=== PATIENT | male | born 1985 | race Two or more races ===

== ENCOUNTER 2021-06-04 12:34 | Emergency (ER) | payer SELFPAY ==
[2021-06-04] MEDS: Dexamethasone 4 MG Tab PO ONE (14:00)
--- NOTE | 2021-06-04 14:43 | EDM.PDOC ---
ED HPI GENERAL MEDICAL PROBLEM - General Chief Complaint: Respiratory Problem Stated Complaint: COVID + Time Seen by Provider: 06/04/21 13:00 Source of Information: Reports: Patient History Limitations: Reports: No Limitations - History of Present Illness INITIAL COMMENTS - FREE TEXT/NARRATIVE: The patient presents with a cough, shortness of breath, fever, chills, generalized weakenss and malaise. This started a few day ago and [facility]. He was COVID positive. He feels worse today. He has no abdominal pain, nausea, vomiting or diarrhea. He has no medical problems such as lung problems, heart disease, hypertension, and hypercholesterolemia. He does smoke. Onset: Gradual Duration: Day(s): Severity: Moderate Improves with: Reports: None Worsens with: Reports: None Associated Symptoms: Reports: Cough, Fever/Chills, Shortness of Breath. Denies: Chest Pain, Headaches, Nausea/Vomiting Generalized Pain Score (Numeric/FACES): 5 - Related Data Allergies Allergy/AdvReac Type Severity Reaction Status Date / Time No Known Allergies Allergy Verified 06/04/21 12:55 Home Meds: Home Meds Albuterol [Proventil HFA] 2 puff INH Q4H PRN #1 inhaler 06/04/21 [Rx] dexAMETHasone [Dexamethasone] 6 mg PO Q6H #12 tab 06/04/21 [Rx] Past Medical History - Past Health History Medical/Surgical History: Denies Medical/Surgical History - Infectious Disease History Infectious Disease History: Reports: Novel Coronavirus Social & Family History - Tobacco Use Tobacco Use Status *Q: Current Every Day Tobacco User Years of Tobacco use: 1 Packs/Tins Daily: 0.2 - Recreational Drug Use Recreational Drug Use: No ED ROS GENERAL - Review of Systems Review Of Systems: See Below Constitutional: Reports: Fever, Chills, Malaise, Weakness, Fatigue HEENT: Reports: No Symptoms Respiratory: Reports: Shortness of Breath, Cough Cardiovascular: Reports: No Symptoms Endocrine: Reports: No Symptoms GI/Abdominal: Reports: No Symptoms : Reports: No Symptoms Musculoskeletal: Reports: No Symptoms ED EXAM, GENERAL - Physical Exam Exam: See Below Exam Limited By: No Limitations General Appearance: Alert, No Apparent Distress Ears: Normal External Exam Nose: Normal Inspection Head: Atraumatic, Normocephalic Neck: Normal Inspection Respiratory/Chest: No Respiratory Distress, Lungs Clear, Normal Breath Sounds Cardiovascular: Regular Rate, Rhythm, No Edema, No Murmur GI/Abdominal: Soft, Non-Tender, No Organomegaly, No Mass Back Exam: Normal Inspection Extremities: Normal Inspection Course - Vital Signs Last Recorded V/S: Last Vital Signs Temp 97 F 06/04/21 12:51 Pulse 102 H 06/04/21 12:51 Resp 16 06/04/21 12:51 BP 129/92 H 06/04/21 12:51 Pulse Ox 96 06/04/21 12:51 - Orders/Labs/Meds Orders: Active Orders 24 hr Category Date Time Status Cardiac Monitoring [RC] . DIRECTED Care 06/04/21 13:36 Active CXR [Chest 1V Frontal] [CR] Stat Exams 06/04/21 13:35 Taken Labs: Laboratory Tests 06/04/21 06/04/21 Range/Units 13:50 13:50 WBC 4.85 (4.23-9.07) K/mm3 RBC 4.58 L (4.63-6.08) M/mm3 Hgb 15.3 (13.7-17.5) gm/dl Hct 44.3 (40.1-51.0) % MCV 96.7 H (79.0-92.2) fl MCH 33.4 H (25.7-32.2) pg MCHC 34.5 (32.2-35.5) g/dl RDW Std Deviation 44.2 H (35.1-43.9) fL Plt Count 182 (163-337) K/mm3 MPV 9.4 (9.4-12.3) fl Neut % (Auto) 60.2 (34.0-67.9) % Lymph % (Auto) 26.4 (21.8-53.1) % Garvin % (Auto) 12.8 H (5.3-12.2) % Eos % (Auto) 0 L (0.8-7.0) Baso % (Auto) 0.4 (0.1-1.2) % Neut # (Auto) 2.92 (1.78-5.38) K/mm3 Lymph # (Auto) 1.28 L (1.32-3.57) K/mm3 Garvin # (Auto) 0.62 (0.30-0.82) K/mm3 Eos # (Auto) 0.00 L (0.04-0.54) K/mm3 Baso # (Auto) 0.02 (0.01-0.08) K/mm3 Manual Slide Review Normal smear Sodium 139 (136-145) mEq/L Potassium 3.7 (3.5-5.1) mEq/L Chloride 101 (98-107) mEq/L Carbon Dioxide 27 (21-32) mEq/L Anion Gap 14.7 (5-15) BUN 13 (7-18) mg/dL Creatinine 1.0 (0.7-1.3) mg/dL Est Cr Clr Drug Dosing TNP Estimated GFR (MDRD) > 60 (>60) mL/min BUN/Creatinine Ratio 13.0 L (14-18) Glucose 95 (70-99) mg/dL Calcium 7.8 L (8.5-10.1) mg/dL Total Bilirubin 0.4 (0.2-1.0) mg/dL AST 29 (15-37) U/L ALT 38 (16-63) U/L Alkaline Phosphatase 62 (46-116) U/L C-Reactive Protein 3.7 H* (<1.0) mg/dL Total Protein 8.0 (6.4-8.2) g/dl Albumin 3.7 (3.4-5.0) g/dl Globulin 4.3 gm/dL Albumin/Globulin Ratio 0.9 L (1-2) Meds: Medications Discontinued Medications Generic Name Dose Route Start Last Admin Trade Name Freq PRN Reason Stop Dose Admin Dexamethasone 6 mg 06/04/21 13:36 06/04/21 14:00 Dexamethasone 4 Mg Tab PO 06/04/21 13:37 6 mg ONETIME ONE Administration - Re-Assessments/Exams Free Text/Narrative Re-Assessment/Exam: 06/04/21 14:41 I ordered a CXR, labs and dexamethasone 6mg PO. His CXR shows an infiltrated in his left lung. 06/04/21 14:42 His CBC and CMP look good. His CRP is elevated at 3.7. I will get him on some dexamethasone at home and an inhaler. Departure - Departure Time of Disposition: 14:45 Disposition: Home, Self-Care 01 Condition: Good Clinical Impression: COVID-19, Pneumonia due to COVID-19 virus - Discharge Information *PRESCRIPTION DRUG MONITORING PROGRAM REVIEWED*: Not Applicable *COPY OF PRESCRIPTION DRUG MONITORING REPORT IN PATIENT TATY: Not Applicable Prescriptions: dexAMETHasone [Dexamethasone] 6 mg PO Q6H #12 tab Albuterol [Proventil HFA] 2 puff INH Q4H PRN #1 inhaler PRN Reason: Shortness Of Breath Referrals: PCP,None [Primary Care Provider] - Awilda Young NP [Nurse Practitioner] - 1 Week Additional Instructions: Take the dexamethasone daily until gone. Use the inhaler 2 puffs every 6 hours as needed for shortness of breath. Take tylenol or motrin as needed for fever. Quarantine for about 10 days or longer if you have symptoms. Sepsis Event Note (ED) - Evaluation Sepsis Screening Result: No Definite Risk - Focused Exam Vital Signs: Vital Signs Temp Pulse Resp BP Pulse Ox 06/04/21 12:51 97 F 102 H 16 129/92 H 96 - My Orders Last 24 Hours: My Active Orders 06/04/21 13:35 CXR [Chest 1V Frontal] [CR] Stat 06/04/21 13:36 Cardiac Monitoring [RC] . DIRECTED - Assessment/Plan Last 24 Hours: My Active Orders 06/04/21 13:35 CXR [Chest 1V Frontal] [CR] Stat 06/04/21 13:36 Cardiac Monitoring [RC] . DIRECTED
--- NOTE | 2021-06-04 15:09 | CR ---
Chest: Portable view of the chest was obtained. Comparison: No prior chest x-ray is available. Patchy areas of of increased density are seen within the left midlung. Minimal densities are scattered within the right lung. Heart size and mediastinum are normal. Bony structures are unremarkable. Impression: 1. Mild areas of Covid pneumonia are felt to be present within both lungs. 2. Portable chest x-ray is otherwise unremarkable. Diagnostic code #3
== END 2021-06-04 15:15 | disposition home or self-care (01) ==
LOC: JD.ED 12:34
DX: U07.1 COVID-19 (principal); J12.82 Pneumonia due to coronavirus disease 2019; Z72.0 Tobacco use; Z86.16 Personal history of COVID-19
CPT/HCPCS: 36415; 71045; 80053; 85025; 86140; 99285; J8540; 99283

== ENCOUNTER 2021-06-07 15:29 | Emergency (ER) | payer SELFPAY ==
--- NOTE | 2021-06-07 16:38 | EDM.PDOC ---
ED HPI GENERAL MEDICAL PROBLEM - General Chief Complaint: Respiratory Problem Stated Complaint: COVID + SOB Time Seen by Provider: 06/07/21 15:47 Source of Information: Reports: Patient, Old Records (previous ER visits), RN Notes Reviewed History Limitations: Reports: No Limitations, Language Barrier (per diem interpreter Ipad utilized) - History of Present Illness INITIAL COMMENTS - FREE TEXT/NARRATIVE: Patient is a 36-year-old male presenting to the ER for his ongoing COVID-19 symptoms. Patient is primarily Malaysian-speaking, and translation is provided through our per diem interpreter iPad. Patient states he has been sick with COVID-19 for roughly 8 days now, he has been taking outpatient dexamethasone, and an inhaler, and states that nothing seems to really be helping. He was feeling a little bit better yesterday, but woke up this morning, and had increasing short of breath, and again felt pretty sick, so he returns to the ER for reevaluation. O2 sats have been in the mid 90s while being here, I did not see anything lower than 92% while being in the ER. Review of his previous visits demonstrate that he did have Covid pneumonia. It does also appear as if he has received IV Regeneron therapy by Dr. Mortensen's orders on 06/02/2021. Patient states he had a temperature as high as 38 C at home. - Related Data Allergies Allergy/AdvReac Type Severity Reaction Status Date / Time No Known Allergies Allergy Verified 06/04/21 12:55 Home Meds: Home Meds Albuterol [Proventil HFA] 2 puff INH Q4H PRN #1 inhaler 06/04/21 [Rx] dexAMETHasone [Dexamethasone] 6 mg PO Q6H #12 tab 06/04/21 [Rx] Azithromycin 250 mg PO ASDIRECTED #6 tablet 06/07/21 [Rx] Past Medical History - Past Health History Medical/Surgical History: Denies Medical/Surgical History - Infectious Disease History Infectious Disease History: Reports: Novel Coronavirus (late 05/2021) Social & Family History - Tobacco Use Tobacco Use Status *Q: Never Tobacco User - Caffeine Use Caffeine Use: Reports: None - Recreational Drug Use Recreational Drug Use: No ED ROS GENERAL - Review of Systems Review Of Systems: Comprehensive ROS is negative, except as noted in HPI. ED EXAM, GENERAL - Physical Exam Exam: See Below Exam Limited By: No Limitations General Appearance: Alert, WD/WN, No Apparent Distress Respiratory/Chest: No Respiratory Distress, Lungs Clear, No Accessory Muscle Use, Chest Non-Tender, Decreased Breath Sounds (diffuse bilaterally) Cardiovascular: Normal Peripheral Pulses, Regular Rate, Rhythm, No Edema Peripheral Pulses: 2+: Radial (L), Radial (R) Extremities: Normal Inspection, Normal Capillary Refill Neurological: Alert, Oriented, Normal Cognition, No Motor/Sensory Deficits Psychiatric: Normal Affect, Normal Mood Skin Exam: Warm, Dry, Intact, Normal Color, No Rash Course - Vital Signs Last Recorded V/S: Last Vital Signs Temp 98.2 F 06/07/21 15:45 Pulse 102 H 06/07/21 15:45 Resp 24 H 06/07/21 15:45 BP 120/81 06/07/21 15:45 Pulse Ox 92 L 06/07/21 15:45 - Orders/Labs/Meds Orders: Active Orders 24 hr Category Date Time Status Chest 1V Frontal [CR] Stat Exams 06/07/21 16:22 Taken Labs: Laboratory Tests 06/07/21 06/07/21 Range/Units 17:20 17:20 WBC 10.25 H (4.23-9.07) K/mm3 RBC 4.15 L (4.63-6.08) M/mm3 Hgb 13.7 D (13.7-17.5) gm/dl Hct 40.1 (40.1-51.0) % MCV 96.6 H (79.0-92.2) fl MCH 33.0 H (25.7-32.2) pg MCHC 34.2 (32.2-35.5) g/dl RDW Std Deviation 42.6 (35.1-43.9) fL Plt Count 219 (163-337) K/mm3 MPV 9.6 (9.4-12.3) fl Neut % (Auto) 87.3 H (34.0-67.9) % Lymph % (Auto) 7.3 L (21.8-53.1) % Andrew % (Auto) 4.9 L (5.3-12.2) % Eos % (Auto) 0 L (0.8-7.0) Baso % (Auto) 0.1 (0.1-1.2) % Neut # (Auto) 8.95 H (1.78-5.38) K/mm3 Lymph # (Auto) 0.75 L (1.32-3.57) K/mm3 Andrew # (Auto) 0.50 (0.30-0.82) K/mm3 Eos # (Auto) 0.00 L (0.04-0.54) K/mm3 Baso # (Auto) 0.01 (0.01-0.08) K/mm3 Manual Slide Review Sodium 138 (136-145) mEq/L Potassium 4.0 (3.5-5.1) mEq/L Chloride 101 (98-107) mEq/L Carbon Dioxide 28 (21-32) mEq/L Anion Gap 13.0 (5-15) BUN 11 (7-18) mg/dL Creatinine 0.8 (0.7-1.3) mg/dL Est Cr Clr Drug Dosing 130.86 mL/min Estimated GFR (MDRD) > 60 (>60) mL/min BUN/Creatinine Ratio 13.8 L (14-18) Glucose 119 H (70-99) mg/dL Calcium 7.8 L (8.5-10.1) mg/dL Total Bilirubin 0.5 (0.2-1.0) mg/dL AST 47 H (15-37) U/L ALT 61 (16-63) U/L Alkaline Phosphatase 59 (46-116) U/L C-Reactive Protein 9.5 H* (<1.0) mg/dL Total Protein 7.6 (6.4-8.2) g/dl Albumin 3.3 L (3.4-5.0) g/dl Globulin 4.3 gm/dL Albumin/Globulin Ratio 0.8 L (1-2) - Re-Assessments/Exams Free Text/Narrative Re-Assessment/Exam: 06/07/21 16:40 Patient presents to the ER for his ongoing COVID-19 illness, for today's purposes we will repeat a chest x-ray and some basic labs. We will go ahead and maybe try some Toradol with him for ongoing management. 06/07/21 18:39 Patient chest x-ray does show worsening patchy infiltrates on the exam reviewed by myself and Dr. Dumas. CBC does demonstrate an elevated white count at 10.25 with 87% neutrophilia on the auto differential, CRP did worsen to 9.5. All other portions of CMP essentially unremarkable. This could be overlying bacterial pneumonia on top of the Covid pneumonia, so we will start him on azithromycin as well for management. Departure - Departure Time of Disposition: 18:47 Disposition: Home, Self-Care 01 Condition: Good Clinical Impression: Pneumonia due to COVID-19 virus Community acquired pneumonia Qualifiers: Laterality: unspecified laterality Qualified Code(s): J18.9 - Pneumonia, unspecified organism - Discharge Information *PRESCRIPTION DRUG MONITORING PROGRAM REVIEWED*: No *COPY OF PRESCRIPTION DRUG MONITORING REPORT IN PATIENT TATY: No Prescriptions: Azithromycin 250 mg PO ASDIRECTED #6 tablet Instructions: Community-Acquired Pneumonia, Adult, [id number] Referrals: PCP,None [Primary Care Provider] - Forms: ED Department Discharge Additional Instructions: You were evaluated in the ER today for your worsening respiratory status. Laboratory evaluation demonstrated a modestly elevated white count, with worsening CRP, consistent with a possible overlying bacterial pneumonia as well as the viral pneumonia that you have already had with COVID-19. Management of this will be oral antibiotics, you have been started on azithromycin please take 2 tablets on day 1, and then 1 tablet until gone. This medication was electronically sent to the [place] pharmacy located in the [facility] grocery store. Please continue all other medications as previously prescribed, and continue all guidance from the [facility] Department of Health regarding your ongoing COVID-19 disease for quarantine or isolation purposes. [place] dept of health should be in touch with you, and please follow all their guidance for ongoing isolation/quaratine purposes. Normal isolation times are 10 days from the time you started having symptoms. Hoy te evaluaron en la glory de emergencias para marva si tu estado respiratorio empeoraba. La evaluacin de laboratorio demostr un recuento de leucocitos moderadamente elevado, con un empeoramiento de la PCR, compatible con jonh posible neumona bacteriana suprayacente, as ophelia con la neumona viral que ya sparks tenido con COVID-19. El manejo de esto ser con antibiticos orales, sparks comenzado con azitromicina, tome 2 tabletas el da 1 y luego 1 tableta hasta que se acabe. Contine con todos los dems medicamentos segn lo recetado anteriormente y contine con todas las pautas del [place] [facility] con respecto a shaikh enfermedad COVID-19 en cur[place] para fines de cuarentena o aislamiento. El departamento [place] de [place] debe estar en contacto con usted y, por favor, siga todas adán instrucciones para fines de aislamiento / cuaratina en curso. Los tiempos normales de aislamiento son 10 singh desde el momento en que comenz a tener sntomas. Sepsis Event Note (ED) - Evaluation Sepsis Screening Result: Possible Sepsis Risk - Focused Exam Vital Signs: Vital Signs Temp Pulse Resp BP Pulse Ox 06/07/21 15:45 98.2 F 102 H 24 H 120/81 92 L - My Orders Last 24 Hours: My Active Orders 06/07/21 16:22 Chest 1V Frontal [CR] Stat - Assessment/Plan Last 24 Hours: My Active Orders 06/07/21 16:22 Chest 1V Frontal [CR] Stat
--- NOTE | 2021-06-08 21:20 | CR ---
Chest: Frontal view of the chest was obtained. Comparison: Prior chest x-ray of 06/04/21. Worsening densities are seen on both sides of the chest from prior chest x-ray. Findings are presumably due to worsening COVID pneumonia. Heart size and mediastinum are normal. Bony structures appear within normal limits. Impression: 1. Worsening bilateral COVID pneumonia is noted within both lungs. Diagnostic code #3
== END 2021-06-07 19:40 | disposition home or self-care (01) ==
LOC: JD.ED 15:29
DX: U07.1 COVID-19 (principal); J12.82 Pneumonia due to coronavirus disease 2019
CPT/HCPCS: 36415; 71045; 71045-26; 80053; 85025; 86140; 99283; 99285-25